=== PATIENT | female | born 1950 | race Caucasian/White ===

== ENCOUNTER → 2018-08-19 09:41 | Outpatient (CLI) | payer MEDICARE, OTHER, SELFPAY | PROVIDERS: PCP Student in an Organized Health Care Education/Training Program; Visit Provider Student in an Organized Health Care Education/Training Program | DX: M85.852 Other specified disorders of bone density and structure, left thigh (principal); Z78.0 Asymptomatic menopausal state | CPT/HCPCS: 77080 ==

== ENCOUNTER → 2018-09-24 14:10 | Outpatient (CLI) | payer MEDICARE, OTHER, SELFPAY ==
--- NOTE | 2018-09-24 | DI.US.S_ITS ---
PROCEDURE: US CHEST COMPARISON: None. INDICATIONS: HARD FIXED MASS MID CLAVICAL LINE 6TH RIB FINDINGS: There is a complex hypoechoic collection of material at the abdomen chest junction on the right, measuring up to 1.1 x 1.0 x 0.8 cm. IMPRESSION: The appearance of the palpable abnormality at the right chest/abdomen junction is nonspecific, and could represent a focus of infection or neoplasm. Very close clinical correlation is recommended and if there is a suspicion for infection or neoplasm surgical consultation would be recommended. Additional imaging of this area could be utilized for further characterization, with MR scanning without and with contrast. Dictated by: Antione Srivastava M.D. on 09/24/2018 at 16:56 Approved by: Antione Srivastava M.D. on 09/24/2018 at 16:58
== END ==
PROVIDERS: PCP Student in an Organized Health Care Education/Training Program; Visit Provider Student in an Organized Health Care Education/Training Program
DX: R22.2 Localized swelling, mass and lump, trunk (principal)
CPT/HCPCS: 76604

== ENCOUNTER → 2020-03-02 14:12 | Outpatient (CLI) | payer MEDICARE, OTHER, SELFPAY ==
--- NOTE | 2020-03-23 11:16 | P.HOLT.S_ITS ---
[employer] Report Referral & Results Date Patient Seen: 03/02/20 Requesting provider: Melisa Gregory Indication: Dizziness Duration of monitoring (days): 7 Diary information: There were 7 patient triggered events and 6 patient diary entries All 13 of these events were associated with sinus rhythm only Data: Minimum heart rate identified was 52 beats per minute at 16:06 on 03/05/2020 Maximum sinus heart rate was 129 beats per minute at 07:39 on 03/04/2020 Maximum overall heart rate was 179 beats per minute at 08:04 on 03/04/2020 during a 6 beat run of SVT Less than 1% of identified beats or either ventricular supraventricular ectopic in origin There were 8 runs of SVT/atrial tachycardia the longest lasting 14.6 seconds at a rate of 115 beats per minute which suggests probable atrial tachycardia rather than true SVT Impression: Patient with rare very brief runs of supraventricular tachycardia or atrial tachycardia but no other significant dysrhythmias identified
== END ==
PROVIDERS: PCP Student in an Organized Health Care Education/Training Program; Referring Provider Student in an Organized Health Care Education/Training Program; Visit Provider Student in an Organized Health Care Education/Training Program
DX: R42 Dizziness and giddiness (principal)
CPT/HCPCS: 0296T; 0298T

== ENCOUNTER → 2021-02-20 09:22 | Outpatient (CLI) | payer MEDICARE, OTHER, SELFPAY ==
[2021-02-20 13:36] LABS: COVID19 -Nasal RAPID Negative (Negative)
== END ==
PROVIDERS: PCP Student in an Organized Health Care Education/Training Program; Visit Provider Nurse Practitioner Family
DX: Z20.822 Contact with and (suspected) exposure to COVID-19 (principal)
CPT/HCPCS: 87635; C9803

== ENCOUNTER 2021-02-22 09:18 | Day surgery (SDC) | payer MEDICARE, OTHER, SELFPAY ==
--- NOTE | 2021-02-21 19:42 | P.OP_ITS ---
Operative Date/Time/Diagnoses Date of procedure: 02/22/21 Time of procedure: 10:45 Procedure & Clinicians Procedure: Preoperative diagnoses: 1. Left nuclear sclerotic and cortical cataract. 2. Glaucoma suspect 3. Macular drusen 4. Hypercholesterolemia Postoperative diagnoses: 1. Cataract removed by phacoemulsification with placement of posterior chamber intraocular lens. Procedure: Phacoemulsification with posterior chamber intraocular lens implant Surgeon: Gretel Paige MD Complications: None Specimen: None Implant: DIBOO+16.0 Blood loss: None Anesthesia: Retrobulbar with monitored standby Description of procedure: Patient presents with a complaint of decreased vision due to cataract which is affecting activities of daily living with problems with night driving. The patient wants surgery to improve vision. The patient understands the extra risk of surgery during the COVID-19 epidemic and wishes to proceed. The patient has tested negative for active virus within 72 hours of the procedure. The patient was taken to the operating room and given IV sedation. A retrobulbar block consisting of 6 cc of 2% xylocaine without epinephrine mixed half and half with 0.5% Marcaine with 1 cc of hyaluronidase added is placed between the medial and lateral 1/3 of the inferior orbital rim. The eye is manually massaged for 30 sec, prepped using Betadine solution, and draped in the usual sterile fashion. Temporal approach was made, a 1 mm side-port incision was made 90? from the proposed clear corneal incision position. Phenylephrine 1.5% mixed with 1% xylocaine 0.2 cc was placed into the anterior chamber .Endocoat followed by H ealon was then placed. A 2.6 mm clear incision with a 2.6 mm blade was placed. A 360 degree capsulorrhexis style capsulotomy was then performed with a cystitome needle on a [employer]. Hydrodelineation and hydrodissection were performed. The phacoemulsification unit is introduced, and sculpting notice used to groove the central lens. It is then removed in chopping mode. Epi nucleus is removed with epinuclear mode and irrigation aspiration was used to remove the peripheral cortex. The posterior capsule is polished. The intraocular lens is selected, inspected, power confirmed, and placed in the posterior chamber. The wound was stromally hydrated and tested for leaks, there was none and it was left sutureless. Intracameral moxifloxacin 0.1 cc was placed into the anterior chamber. Kenalog 0.2 cc was placed in the superior subconjunctival space. A drop of antibiotic and was placed and the eye was patched and shielded. The patient was stable and returned to the recovery room in excellent condition. Dictated by: Gretel Paige MD Copy to: [facility] Same procedure as scheduled: Yes
--- NOTE | 2021-02-21 19:42 | PM.PREOP ---
Pre-operative Note COVID-19 COVID-19 status: Negative Interval Note History & Physical reviewed/Exam performed by Physician: Yes Changes to H&P: No
[2021-02-22 09:36] VITALS: BP 158/84; PULSE 73; RESP 15; TEMP 36.7; O2SAT 99
[2021-02-22 09:37] VITALS: BMI 29.1
[2021-02-22] MEDS: LIDOCAINE 2% 4 ML, BUPIVACAINE 0.5% (PF) 4 ML, HYALURONIDASE 150 UNIT INJ (11:19)
[2021-02-22] MEDS: ERYTHROMYCIN OPHTH 1 GM OINT 1 APPLIC EYE-LEFT (11:31)
[2021-02-22] MEDS: MOXIFLOXACIN INJ 4 MG/0.8 ML VIAL 0.5 MG EYE-OP (11:31)
[2021-02-22] MEDS: HYALURONATE SODIUM 30 MG-10 MG/ML SYRINGES 1 BOX INTRAOCULA (11:31)
[2021-02-22] MEDS: TRIAMCINOLONE 50 MG/5 ML VIAL INJ (11:32)
[2021-02-22] MEDS: PHENYLEPHRINE/LIDOCAINE VIAL (OR) 0.2 ML EYE-OP (11:32)
[2021-02-22] MEDS: BALANCED SALT IRRIG SOLN NO.2 500 ML, EPINEPHrine 1 MG IRR (11:33)
[2021-02-22 12:00] VITALS: BP 184/84; PULSE 65; RESP 16; TEMP 36.3; O2SAT 98
[2021-02-22 12:15] VITALS: BP 162/85; PULSE 66; RESP 16; O2SAT 98
--- NOTE | 2021-02-22 14:27 | SUR.PHASEII ---
Phase 2. 1225-Reinforced discharge instructions, all paperwork and eye implant card in envelope and given to patient. Patient aware that doctor discussed starting eye meds tonight at dinner time. vss. Ride called and on way. iv out. Dressed self independently. 1235-Discharged by wheelchair with all belongings/paper to spouses care and car.
== END 2021-02-22 12:35 | disposition home or self-care (01) ==
LOC: OR 09:20
PROVIDERS: PCP Student in an Organized Health Care Education/Training Program; Referring Provider Ophthalmology; Visit Provider Ophthalmology
PROC: (CPT 66984; principal; 2021-02-22 10:45)
DX: H25.812 Combined forms of age-related cataract, left eye (principal); H40.009 Preglaucoma, unspecified, unspecified eye; H35.369 Drusen (degenerative) of macula, unspecified eye; E78.00 Pure hypercholesterolemia, unspecified
CPT/HCPCS: 66984; J0171; J2704; J3301; J3470

== ENCOUNTER → 2021-05-01 10:53 | Outpatient (CLI) | payer MEDICARE, OTHER, SELFPAY ==
[2021-05-01 13:19] LABS: COVID19 -Nasal RAPID Negative (Negative)
== END ==
PROVIDERS: PCP Student in an Organized Health Care Education/Training Program; Visit Provider Family Medicine Sleep Medicine
DX: Z20.822 Contact with and (suspected) exposure to COVID-19 (principal)
CPT/HCPCS: 87635; C9803

== ENCOUNTER 2021-05-03 07:18 | Day surgery (SDC) | payer MEDICARE, OTHER, SELFPAY ==
--- NOTE | 2021-05-02 18:58 | PM.PREOP ---
Pre-operative Note COVID-19 COVID-19 status: Negative Criteria for continued procedure: Expected advancement of disease process, Possibility delay results in more complex future surgery or treatment, Increased loss of function, Delay expected to result in less-positive ultimate med/surg outcome and Non-surgical alternatives not available or appropriate per current SOC Interval Note History & Physical reviewed/Exam performed by Physician: Yes Changes to H&P: No
--- NOTE | 2021-05-02 19:02 | PM.OP.1 ---
Operative Date/Time/Diagnoses Date of procedure: 05/03/21 Time of procedure: 08:45 Procedure & Clinicians Procedure: Preoperative diagnoses: 1. Right significant nuclear sclerotic and cortical cataract. 2. Glaucoma suspect 3. Macular drusen 4. Previous chemotherapy near the nose Postoperative diagnoses: 1. Cataract removed by phacoemulsification with placement of posterior chamber intraocular lens. Procedure: Phacoemulsification with posterior chamber intraocular lens implant Surgeon: Gretel Paige MD Complications: None Specimen: None Implant: DIBOO +17.5 Myopic target -1.50 Blood loss: None Anesthesia: Retrobulbar with monitored standby Description of procedure: Patient presents with a complaint of decreased vision due to cataract which is affecting activities of daily living with problems with night driving. The patient wants surgery to improve vision. The patient understands the extra risk of surgery during the COVID-19 epidemic and wishes to proceed. She has tested negative for active virus within 72 hours of the procedure. This is her 2nd eye and she has a distance target in her left eye. She is choosing an intermediate to near lens for this eye. This was tried in a contact lens trial. The patient was taken to the operating room and given IV sedation. A retrobulbar block consisting of 6 cc of 2% xylocaine without epinephrine mixed half and half with 0.5% Marcaine with 1 cc of hyaluronidase added is placed between the medial and lateral 1/3 of the inferior orbital rim. The eye is manually massaged for 30 sec, prepped using Betadine solution, and draped in the usual sterile fashion. Temporal approach was made, a 1 mm side-port incision was made 90? from the proposed clear corneal incision position. Phenylephrine 1.5% mixed with 1% xylocaine 0.2 cc was placed into the anterior chamber .Endocoat followed by Annabelle was then placed. A 2.6 mm clear incision with a 2.6 mm blade was placed. A 360 degree capsulorrhexis style capsulotomy was then performed with a cystitome needle on a He[employer]. Hydrodelineation and hydrodissection were performed. The phacoemulsification unit is introduced, and sculpting notice used to groove the central lens. It is then removed in chopping mode. Epi nucleus is removed with epinuclear mode and irrigation aspiration was used to remove the peripheral cortex. The posterior capsule is polished. The intraocular lens is selected, inspected, power confirmed, and placed in the posterior chamber. The wound was stromally hydrated and tested for leaks, there was none and it was left sutureless. Intracameral moxifloxacin 0.1 cc was placed into the anterior chamber. Kenalog 0.2 cc was placed in the superior subconjunctival space. A drop of antibiotic and was placed and the eye was patched and shielded. The patient was stable and returned to the recovery room in excellent condition. Dictated by: Gretel Paige MD Copy to: [facility] Same procedure as scheduled: Yes
[2021-05-03] MEDS: PROPARACAINE 0.5% OPHTH SOL 2 DROPS EYE-OP (07:36)
[2021-05-03 07:38] VITALS: BP 162/89; PULSE 104; RESP 16; TEMP 36.7; O2SAT 99; BMI 29.1
[2021-05-03] MEDS: CATARACT EYE COMPOUND (10 DROPS/SYRINGE) 3 DROPS EYE-OP (07:44)
--- NOTE | 2021-05-03 08:24 | SUR.OPER ---
Supine on eye stretcher, head on extension cradle secured with tape. Arms tucked at sides with blanket. Pillow under knees.
[2021-05-03] MEDS: LIDOCAINE 2% 4 ML, BUPIVACAINE 0.5% (PF) 4 ML, HYALURONIDASE 150 UNIT INJ (08:50)
[2021-05-03] MEDS: HYALURONATE SODIUM 30 MG-10 MG/ML SYRINGES 1 BOX INTRAOCULA (08:58)
[2021-05-03] MEDS: MOXIFLOXACIN INJ 4 MG/0.8 ML VIAL 0.5 MG EYE-OP (08:58)
[2021-05-03] MEDS: PHENYLEPHRINE/LIDOCAINE VIAL (OR) 0.2 ML EYE-OP ×2 (08:59)
[2021-05-03] MEDS: BALANCED SALT IRRIG SOLN NO.2 500 ML, EPINEPHrine 1 MG IRR (09:01)
[2021-05-03] MEDS: ERYTHROMYCIN OPHTH 1 GM OINT 1 APPLIC EYE-RIGHT (09:02)
[2021-05-03 09:16] VITALS: BP 137/76; PULSE 71; RESP 12; O2SAT 98
[2021-05-03 09:39] VITALS: BP 132/65; PULSE 73; RESP 14; TEMP 36.6; O2SAT 98
== END 2021-05-03 09:55 | disposition home or self-care (01) ==
LOC: OR 07:19
PROVIDERS: PCP Student in an Organized Health Care Education/Training Program; Referring Provider Ophthalmology; Visit Provider Ophthalmology
PROC: (CPT 66984; principal; 2021-05-03 08:45)
DX: H25.811 Combined forms of age-related cataract, right eye (principal); H40.009 Preglaucoma, unspecified, unspecified eye; H35.369 Drusen (degenerative) of macula, unspecified eye; E78.5 Hyperlipidemia, unspecified
CPT/HCPCS: 66984; J0171; J2250; J2704; J3010; J3470

== ENCOUNTER → 2021-06-06 13:53 | Outpatient (CLI) | payer MEDICARE, OTHER, SELFPAY | PROVIDERS: PCP Student in an Organized Health Care Education/Training Program; Referring Provider Ophthalmology; Visit Provider Ophthalmology | DX: B00.89 Other herpesviral infection (principal) | CPT/HCPCS: 87255 ==

== ENCOUNTER → 2021-07-21 11:43 | Outpatient (CLI) | payer MEDICARE, OTHER, SELFPAY | PROVIDERS: PCP Student in an Organized Health Care Education/Training Program; Referring Provider Student in an Organized Health Care Education/Training Program; Visit Provider Student in an Organized Health Care Education/Training Program | DX: Z13.820 Encounter for screening for osteoporosis (principal); M85.89 Other specified disorders of bone density and structure, multiple sites; Z78.0 Asymptomatic menopausal state | CPT/HCPCS: 77080 ==

== ENCOUNTER → 2021-11-28 08:00 | Outpatient (CLI) | payer MEDICARE, OTHER, SELFPAY | PROVIDERS: PCP Student in an Organized Health Care Education/Training Program; Referring Provider Ophthalmology; Visit Provider Ophthalmology | DX: M35.00 Sjogren syndrome, unspecified (principal); H10.023 Other mucopurulent conjunctivitis, bilateral | CPT/HCPCS: 87070; 87075; 87205 ==

== ENCOUNTER → 2023-07-15 09:47 | Outpatient (CLI) | payer MEDICARE, OTHER, SELFPAY ==
--- NOTE | 2023-07-15 | DI.RAD.S_ITS ---
PROCEDURE: XR DEXA AXIAL SKELETON INDICATIONS: OSTEOPOROSIS SCREENING COMPARISON: [facility], CR, XR DEXA AXIAL SKELETON, 07/21/2021, 12:04. FINDINGS: Lumbar Spine: Bone mineral density 0.927 g/cm2, T score -0.8. Left Hip: Bone mineral density 0.709 g/cm2, T score -1.9. Left Femoral Neck: Bone mineral density 0.595 g/cm2, T score -2.3. Right Hip: Bone mineral density 0.713 g/cm2, T score -1.9. Right Femoral Neck: Bone mineral density 0.587 g/cm2, T score -2.4. Fracture Risk Calculation (when applicable): 10-year fracture risk of a major osteoporotic fracture 14% and of a hip fracture 3.5%. (T score greater or equal to -1.0 to: NORMAL) (T score from -1.1 to -2.4: OSTEOPENIA) (T score less than or equal to -2.5: OSTEOPOROSIS) IMPRESSION: Osteopenia of the bilateral hips. Follow-up guidelines as follows: Osteoporosis: Consider a repeat DEXA and Vertebral Fracture Assessment (VFA) exam in 2 years or sooner if medically necessary, to reassess this patient's status. Osteopenia: Consider a repeat DEXA in 2-3 years to reassess this patient's status, or if there is a new clinical indication. Normal: Consider a repeat DEXA in 5 years or sooner, or if there is a new clinical indication. Dictated by: Nathalia North M.D. on 07/15/2023 at 11:58 Approved by: Nathalia North M.D. on 07/15/2023 at 12:00
== END ==
LOC: RAD 09:49
PROVIDERS: PCP Student in an Organized Health Care Education/Training Program; Referring Provider Student in an Organized Health Care Education/Training Program; Visit Provider Student in an Organized Health Care Education/Training Program
DX: M85.89 Other specified disorders of bone density and structure, multiple sites (principal); N95.9 Unspecified menopausal and perimenopausal disorder
CPT/HCPCS: 77080